=== PATIENT | female | born 1980 | race Caucasian/White ===

== ENCOUNTER → 2021-08-19 | Outpatient (CLI) | payer OTHER ==
--- NOTE | 2021-08-19 11:25 | PFTRPT ---
Site: [facility], [address] [place] [address], [id number] ID: [id number] Name: MARE JEAN-BAPTISTE Visit Date: 08/19/2021 Second ID: [id number] Referring Doctor: Bertha Alvarez MD Reviewing Doctor: Maxi Umana MD Insurance Policy Issue Clerk: Jada SANTOS RRT Age: 40 : 1980 Sex: Female Race: Height: 62.00 Inches Weight: 170.00 Lbs BSA: 1.78 Order IDs: [id number] Requested Test(s): <RESP-PFT.PFT B/A> Diagnosis: J85.1 test meet the ATS standards for acceptability and repeatability. Pt was given four puffs of albuterol for post bronchodilator. Review Status: Not Reviewed Pre-Bronch Post-Bronch Pred Actual %Pred Actual %Chng SPIROMETRY FVC (L) 3.44 3.68 106 3.83 4 FEV1 (L) 2.81 2.87 101 3.15 9 FEV1/FVC (%) 82 78 94 82 5 FEF 25% (L/sec) 5.23 7.02 134 7.16 1 FEF 50% (L/sec) 4.18 3.05 73 4.44 45 FEF 75% (L/sec) 1.65 0.94 56 1.64 74 FEF 25-75% (L/sec) 2.99 2.45 81 3.65 48 FEF Max (L/sec) 6.65 7.22 108 7.36 1 FIVC (L) 3.67 3.79 3 FIF 50% (L/sec) 3.87 5.61 144 4.64 -17 FIF Max (L/sec) 5.61 5.31 -5 MVV (L/min) 98 107 108 Expiratory Time (sec) 6.29 6.91 9 Back Extrap Vol (L) 0.12 0.11 -6 Time To FEFmax (sec) 0.103 0.090 -12 LUNG VOLUMES SVC (L) 3.25 3.74 115 IC (L) 2.14 3.02 141 ERV (L) 1.11 0.72 64 TGV (L) 2.61 2.56 98 RV (Pleth) (L) 1.50 1.84 122 TLC (Pleth) (L) 4.75 5.58 117 RV/TLC (Pleth) (%) 31 33 106 DIFFUSION DLCOunc (ml/min/mmHg) 22.93 27.23 118 DLCOcor (ml/min/mmHg) 22.93 26.83 117 DL/VA (ml/min/mmHg/L) 4.83 5.04 104 VA (L) 4.75 5.33 112 BHT (sec) 9.75 IVC (L) 3.69 TLC (SB) (L) 5.48 AIRWAYS RESISTANCE Raw (cmH2O/L/s) 1.86 0.76 40 Gaw (L/s/cmH2O) 1.03 1.40 136 sRaw (cmH2O*s) 4.76 1.82 38 sGaw (1/cmH2O*s) 0.20 0.57 286 BLOOD GASES Hgb (gm/dL) 13.9
== END ==
LOC: M CARPUL 10:50
PROVIDERS: ATTEND Internal Medicine Pulmonary Disease
DX: J85.1 Abscess of lung with pneumonia (principal)